=== PATIENT | female | born 1975 | race Caucasian/White ===

== ENCOUNTER 2018-11-21 21:03 | Emergency (ER) | payer MEDICARE ==
[2018-11-21 21:05] VITALS: BMI 34.6
[2018-11-21] MEDS ORDERED: MINIPRESS2 MG PO (21:07)
[2018-11-21] MEDS ORDERED: HYDROXYZINE PA100 MG PO (21:07)
[2018-11-21] MEDS ORDERED: ABILIFY2 MG PO (21:07)
[2018-11-21] MEDS ORDERED: DEPAKOTE500 MG PO ×2 (21:07→22:40)
[2018-11-21] MEDS ORDERED: IBUPROFEN800 MG PO (21:07)
[2018-11-21] MEDS ORDERED: NEURONTIN800 MG PO (21:08)
[2018-11-21] MEDS ORDERED: NAPROSYN500 MG PO (21:08)
[2018-11-21] MEDS ORDERED: PROZAC40 MG PO (21:08)
[2018-11-21] MEDS ORDERED: BUPRENORPHINE HC8 MG SL (21:08)
[2018-11-21] MEDS ORDERED: TESSALON PERLE100 MG PO (21:08)
[2018-11-21 21:39] LABS: BASOPHILS 0.2 % (0-2); EOSINOPHILS 1.6 % (0-7); HEMATOCRIT 36.6 % (36.0-48.0); HEMOGLOBIN 12.4 g/dL (12-16); IMMATURE GRANULOCYTES 0.8 % (0-5); LYMPHOCYTES 34.9 % (15-50); MCH 32.1 pg (26.0-34.0); MCHC 33.9 g/dL (31.0-37.0); MCV 94.8 fL (80.0-100.0); NEUTROPHILS 57.5 % (40-80); PLATELET COUNT 395 10x3/uL (130-400); RBC 3.86 10x6/uL (4.00-5.40); RDW 13.6 % (11.5-14.5)
[2018-11-21 21:41] LABS: APPEARANCE CLEAR (CLEAR); BILIRUBIN NEGATIVE (NEGATIVE); COLOR YELLOW (YELLOW); GLUCOSE NEGATIVE (NEGATIVE); KETONE NEGATIVE (NEGATIVE); NITRITE NEGATIVE (NEGATIVE); PROTEIN NEGATIVE (NEGATIVE); UROBILINOGEN NORMAL (NORMAL)
[2018-11-21 21:56] LABS: UDS - AMPHET NEGATIVE QUAL (NEGATIVE); UDS - BARB NEGATIVE QUAL (NEGATIVE); UDS - BENZO POSITIVE QUAL (NEGATIVE); UDS - COCAINE NEGATIVE QUAL (NEGATIVE); UDS - OPIATE NEGATIVE QUAL (NEGATIVE); UDS - PCP NEGATIVE QUAL (NEGATIVE); UDS - THC NEGATIVE QUAL (NEGATIVE)
[2018-11-21 21:57] LABS: ALBUMIN 3.2 g/dL (3.4-5.0); ALKALINE PHOSPHATASE 58 U/L (46-116); ALT (SGPT) 24 U/L (10-68); CALC OSMOLALITY 283 mosm/kg (275-300); CALCIUM 8.6 mg/dL (8.5-10.1); CARBON DIOXIDE 27.1 mmol/L (21.0-32.0); CHLORIDE - SERUM 105 mmol/L (98-107); CREATININE - SERUM 0.7 mg/dL (0.6-1.3); GLUCOSE 115 mg/dL (74-106); POTASSIUM - SERUM 4.7 mmol/L (3.5-5.1); PROTEIN - SERUM 7.6 g/dL (6.4-8.2); SODIUM 139 mmol/L (136-145); UREA NITROGEN 27 mg/dL (7-18); VALPROIC ACID (DEPAKOTE) 25.4 ug/mL (50.0-100.0); eGFR NON AFRICAN AMERICAN > 90 mL/min (90-120)
[2018-11-21 21:58] LABS: BILIRUBIN - TOTAL 0.09 mg/dL (0.2-1.3)
[2018-11-22 00:08] VITALS: BP 133/78
== END 2018-11-22 00:04 | disposition home or self-care (01) ==
LOC: D.ER 21:03
PROVIDERS: Emergency Medicine
DX: F11.23 Opioid dependence with withdrawal (principal); Z51.81 Encounter for therapeutic drug level monitoring; T42.76XA Underdosing of unspecified antiepileptic and sedative-hypnotic drugs, initial encounter; Z91.138 Patient's unintentional underdosing of medication regimen for other reason; Y92.89 Other specified places as the place of occurrence of the external cause; G40.409 Other generalized epilepsy and epileptic syndromes, not intractable, without status epilepticus